=== PATIENT | female | born 2000 | race African-American/Black ===

== ENCOUNTER 2021-11-27 12:30 | Emergency (ER) | payer OTHER ==
[~2021-11-27] VITALS: Ht 160 cm; Wt 139.3 kg
[2021-11-27 12:54] VITALS: BP 160/84
[2021-11-27 13:03] LABS: URINE BILIRUBIN NEGATIVE (Negative); URINE BLOOD 3+ (Negative); URINE CLARITY SL CLOUDY; URINE COLOR YELLOW; URINE GLUCOSE-RANDOM* NEGATIVE (Negative); URINE KETONES NEGATIVE (Negative); URINE LEUKOCYTES-REFLEX TRACE (Negative); URINE NITRITE-REFLEX NEGATIVE (Negative); URINE PROTEIN (DIPSTICK) NEGATIVE (Negative); URINE UROBILINOGEN 0.2 E.U./dl (0.2-1.0)
[2021-11-27 13:21] LABS: CASTS None Seen /LPF (None Seen); SQUAMOUS 0-3 Few /LPF (0-3); URINE RBC >20 Many /HPF (NONE SEEN); URINE WBC-REFLEX 0-5 Rare /HPF (0-5)
[2021-11-27 13:22] LABS: CRYSTALS None Seen /LPF (None Seen)
== END 2021-11-27 17:00 ==
LOC: ER 12:30
PROVIDERS: Emergency Medicine
DX: O26.892 Other specified pregnancy related conditions, second trimester (principal); R31.9 Hematuria, unspecified; Z3A.18 18 weeks gestation of pregnancy; Z98.890 Other specified postprocedural states